=== PATIENT | female | born 1985 ===

== ENCOUNTER 2016-08-03 16:30 | Emergency (ER) | payer OTHER ==
[~2016-08-03] VITALS: Ht 152.4 cm; Wt 58.0 kg
[~2016-08-03 16:30] MED LIST: CEPH500T PO; LEVO50TA PO; PROP20TA67 PO
[2016-08-03 16:41] VITALS: BP 133/77; PULSE 106; TEMP 37.3; O2SAT 98; Ht 152.4 cm; Wt 58.0 kg
[2016-08-03] MEDS ORDERED: LEVO100T7 PO (17:43)
[2016-08-03] MEDS ORDERED: FOLI1TAB7 PO (17:43)
--- NOTE | 2016-08-03 18:07 | DIAGNOSTIC IMAGING REPORT ---
CT SCAN OF THE ABDOMEN AND PELVIS WITHOUT IV CONTRAST CLINICAL HISTORY: Epigastric abdominal pain. Nausea and vomiting. COMPARISON STUDY: No priors. TECHNIQUE: CT scan of the abdomen and pelvis is performed from the lung bases to the proximal femora. Images are reviewed in the axial, sagittal, and coronal planes. IV contrast was not administered for this examination as per the referring clinician. Note that the examination was performed in suboptimal fashion without oral and IV contrast. Automated dose control exposure was utilized. CT DOSE: 268.09 mGy.cm FINDINGS: Lung bases: The heart is normal in size and without pericardial effusion. The lung bases are clear. Liver: The unenhanced liver is normal in size, contour, and attenuation. There is no intrahepatic biliary ductal dilatation. Gallbladder: Unremarkable. Spleen: Normal in size and attenuation. Pancreas: Unremarkable. Adrenal glands: Unremarkable. Kidneys: The unenhanced kidneys are normal in size and without hydronephrosis. There are no renal calculi identified. There is no evidence of contour deforming renal mass lesion. Abdominal vasculature: The abdominal aorta is normal in course and caliber. Bowel: The small bowel and colon are normal in course and caliber. The appendix is well-visualized and normal. Peritoneum: There is no intraperitoneal free air or abdominal ascites. There is a small fat-containing umbilical hernia. Lymphadenopathy: None. Pelvic viscera: The bladder, uterus, and adnexa are normal as visualized. Numerous calcified phleboliths are seen in the pelvis. There is trace free fluid in the cul-de-sac. Skeletal structures: No lytic or blastic lesions are seen. IMPRESSION: 1. Suboptimal examination without oral and IV contrast. 2. There are no acute infectious or inflammatory findings in the abdomen or pelvis. 3. There is trace and likely physiologic free fluid in the cul-de-sac. Electronically signed by: Jaydon Fernandez M.D. 08/03/2016 6:06 PM Dictated Date/Time: 08/03/2016 6:02 PM
--- NOTE | 2016-08-03 18:31 | DIAGNOSTIC IMAGING REPORT ---
ULTRASOUND RIGHT UPPER QUADRANT ABDOMEN CLINICAL HISTORY: Right upper quadrant abdominal pain. COMPARISON STUDY: Abdominal CT performed the same day 08/03/2016. TECHNIQUE: Real-time, grayscale, and color flow sonography of the right upper quadrant of the abdomen was performed. Images are reviewed in the transverse and longitudinal planes. FINDINGS: Liver: The liver is normal in size and echotexture. There is no intrahepatic biliary ductal dilatation. The main portal vein is patent. Gallbladder: The gallbladder is normal in appearance. No gallstones are identified. There is no gallbladder wall thickening or pericholecystic fluid. A sonographic Elam's sign is reportedly absent. The common bile duct measures up to 0.4 cm in diameter. Pancreas: Visualized portions of the pancreatic head and body are normal in appearance. The splenic vein is patent. Right kidney: Survey images of the right kidney demonstrate normal size and echotexture. There is no hydronephrosis. Ascites: None. IMPRESSION: Unremarkable sonographic assessment of the right upper quadrant. No gallstones are identified. Electronically signed by: Jaydon Fernandez M.D. 08/03/2016 6:29 PM Dictated Date/Time: 08/03/2016 6:28 PM
--- NOTE | 2016-08-03 18:36 | EMERGENCY ROOM VISIT NOTE ---
History Report prepared by Paty: Dustin Meyers Under the Supervision of: Dr. Elbert Gamble D.O. First contact with patient: 17:09 Chief Complaint: ABDOMINAL PAIN Stated Complaint: STOMACH AND BACK PAIN Nursing Triage Summary: Patient sent for evaluation of epigastric pain and pain into the mid back. Patient seen at [facility] today. Patient also c/o nausea and vomiting last evening. History of Present Illness The patient is a 30 year old female who presents to the Emergency Room with complaints of persistent abdominal pain beginning last night. She notes her stomach was achy and that she also had left sided back pain. She reports vomiting about two times and has had nausea, but denies any diarrhea. Her symptoms are slightly better today, but the patient is afraid they may become worse again. The patient notes taking Zantac last night which worsened her symptoms. She was seen at [facility] where blood work and a urine sample was taken. She notes her last known menstrual period was 20 days ago. She denies being in the past. Per a CBC at [facility], her WBC was 8.7, hemoglobin was 12.7, hCG was negative, amylase was normal, lipase was normal, urine showed 1+ blood, chemistry panel was normal, and LFTs was normal. Source of History: patient Onset: last night Position: abdomen (upper) Quality: ache Timing: other (persistent) Modifying Factors (Worsening): other (Zantac) Associated Symptoms: + back pain (left-sided), + nausea, + vomiting, No diarrhea Review of Systems See HPI for pertinent positives & negatives. A total of 10 systems reviewed and were otherwise negative. Past Medical & Surgical Medical Problems: (1) No Known Active Medical Problems Family History Patient reports no known family medical history. Social History Smoking Status: Never Smoker Alcohol Use: none Drug Use: none Current/Historical Medications Scheduled Folic Acid (Folvite), 1 MG PO DAILY Levothyroxine Sodium (Synthroid), 50 MCG PO DAILY Levothyroxine Sodium (Levothyroxine Sodium), 1 TAB PO DAILY Allergies Coded Allergies: No Known Allergies (Unverified , 08/03/16) Physical Exam Vital Signs Date Time Temp Pulse Resp B/P Pulse Ox O2 Delivery O2 Flow Rate FiO2 08/03/16 16:41 37.3 106 20 133/77 98 Room Air Physical Exam CONSTITUTIONAL/VITAL SIGNS: Reviewed / noted above. GENERAL: Non-toxic in appearance. INTEGUMENTARY: Warm, dry, and [place]. HEAD: Normocephalic. EYES: without scleral icterus or trauma. ENT/OROPHARYNX: clear and moist. LYMPHADENOPATHY/NECK: Is supple without lymphadenopathy or meningismus. RESPIRATORY: Lungs clear and equal. CARDIOVASCULAR: Regular rate and rhythm. GI/ABDOMEN: Tenderness in the epigastrium and right upper quadrant; no tenderness in the lower abdomen. No organomegaly or pulsatile mass. No rebound or guarding. Normal bowel sounds. EXTREMITIES: Warm and well perfused. BACK: Left CVA tenderness. NEUROLOGICAL: Intact without focal deficits. PSYCHIATRIC: normal affect. MUSCULOSKELETAL: Normally developed with good muscle tone. Medical Decision & Procedures ER Provider Diagnostic Interpretation: Radiology results as stated below per my review and radiologist interpretation: CT SCAN OF THE ABDOMEN AND PELVIS WITHOUT IV CONTRAST FINDINGS: Lung bases: The heart is normal in size and without pericardial effusion. The lung bases are clear. Liver: The unenhanced liver is normal in size, contour, and attenuation. There is no intrahepatic biliary ductal dilatation. Gallbladder: Unremarkable. Spleen: Normal in size and attenuation. Pancreas: Unremarkable. Adrenal glands: Unremarkable. Kidneys: The unenhanced kidneys are normal in size and without hydronephrosis. There are no renal calculi identified. There is no evidence of contour deforming renal mass lesion. Abdominal vasculature: The abdominal aorta is normal in course and caliber. Bowel: The small bowel and colon are normal in course and caliber. The appendix is well-visualized and normal. Peritoneum: There is no intraperitoneal free air or abdominal ascites. There is a small fat-containing umbilical hernia. Lymphadenopathy: None. Pelvic viscera: The bladder, uterus, and adnexa are normal as visualized. Numerous calcified phleboliths are seen in the pelvis. There is trace free fluid in the cul-de-sac. Skeletal structures: No lytic or blastic lesions are seen. IMPRESSION: 1. Suboptimal examination without oral and IV contrast. 2. There are no acute infectious or inflammatory findings in the abdomen or pelvis. 3. There is trace and likely physiologic free fluid in the cul-de-sac. Electronically signed by: Jaydon Fernandez M.D. 08/03/2016 6:06 PM Dictated Date/Time: 08/03/2016 6:02 PM ULTRASOUND RIGHT UPPER QUADRANT ABDOMEN FINDINGS: Liver: The liver is normal in size and echotexture. There is no intrahepatic biliary ductal dilatation. The main portal vein is patent. Gallbladder: The gallbladder is normal in appearance. No gallstones are identified. There is no gallbladder wall thickening or pericholecystic fluid. A sonographic Elam's sign is reportedly absent. The common bile duct measures up to 0.4 cm in diameter. Pancreas: Visualized portions of the pancreatic head and body are normal in appearance. The splenic vein is patent. Right kidney: Survey images of the right kidney demonstrate normal size and echotexture. There is no hydronephrosis. Ascites: None. IMPRESSION: Unremarkable sonographic assessment of the right upper quadrant. No gallstones are identified. Electronically signed by: Jaydon Fernandez M.D. 08/03/2016 6:29 PM Dictated Date/Time: 08/03/2016 6:28 PM ED Course 1713: Previous medical records were reviewed. The patient was evaluated in room C5. A complete history and physical examination was performed. 1835: On reevaluation, the patient is doing well. I discussed the results and findings with the patient. She verbalized agreement of the treatment plan. The patient was discharged home. Medical Decision Differential considered: pancreatitis, hepatitis, or acute cholecystitis, AAA, UTI, pyelonephritis, kidney stones, appendicitis, diverticulitis, shingles, bowel obstruction mesenteric ischemia, intussusception,hernia, ovarian torsion, ruptured ovarian cyst,ectopic , . This is a 30-year-old female who presents to the ED with a chief complaint of epigastric abdominal pain as well as left-sided abdominal pain that started around 11 PM last evening. The patient states that she has had several episodes of vomiting last night. She seems to be better now for the most part and was seen at [facility] earlier today. She had blood work done as well as urinalysis and test. The only thing that came up positive was some blood in the urine. Her last muscle. Was the first week of this month. She has never been . Her exam reveals epigastric tenderness as well as some left CVA tenderness and some mild right upper quadrant tenderness. Of note, the patient's LFTs and pancreatic enzymes as well as CBC were normal from [facility]. She did not have a urinary tract infection and her test was negative. CT scan of the abdomen and pelvis here was negative for acute disease. Gallbladder ultrasound here was negative for acute disease. The patient was told results. She is felt to be stable for discharge. Impression Primary Impression: Abdominal pain, epigastric Scribe Attestation The scribe's documentation has been prepared under my direction and personally reviewed by me in its entirety. I confirm that the note above accurately reflects all work, treatment, procedures, and medical decision making performed by me. Departure Information Dispostion Home / Self-Care Referrals Florencia Antonio M.D. (PCP) Patient Instructions My [facility] Additional Instructions Your CAT scan and ultrasound today did not reveal a cause for your pain. Follow-up with your doctor if symptoms persist. Return for significant worsening or new concerns.
== END 2016-08-03 18:52 | disposition home or self-care (01) ==
LOC: C.EDB 16:31 → C.EDC 18:52
DX: R10.13 Epigastric pain (principal); Z79.899 Other long term (current) drug therapy